=== PATIENT | male | born 1995 | race Caucasian/White ===

== ENCOUNTER 2017-02-18 12:02 | Emergency (ER) | payer OTHER ==
[~2017-02-18] VITALS: Ht 170.2 cm; Wt 77.3 kg
[2017-02-18 12:12] VITALS: BP 111/70; PULSE 56; RESP 16; O2SAT 99
== END 2017-02-18 13:15 | disposition left against medical advice (07) ==
LOC: SED 12:02
DX: R21 Rash and other nonspecific skin eruption (principal); Z53.21 Procedure and treatment not carried out due to patient leaving prior to being seen by health care provider